=== PATIENT | male | born 1965 | race Two or more races ===

== ENCOUNTER → 2019-06-04 | Day surgery (SDC) | payer OTHER ==
[2019-05-28 15:36] LABS: BASOPHILS % 0.4 % (0.0-1.0); EOSINOPHILS # (AUTO) 0.4 (0.0-0.4); HEMOGLOBIN 15.1 g/dL (14.0-18.0); LYMPHOCYTES # (AUTO) 3.3 (1.0-3.2); LYMPHOCYTES % 43.4 % (18.0-39.1); MEAN CORPUSCULAR HEMOGLOBIN 29.9 pg (28-32); MEAN CORPUSCULAR HGB CONC 35.1 g/dL (31-35); MEAN CORPUSCULAR VOLUME 85.1 fL (81-99); MONOCYTES # (AUTO) 0.6 (0.2-0.8); MONOCYTES % 7.2 % (4.4-11.3); NEUTROPHILS # (AUTO) 3.3 (2.1-6.9); NEUTROPHILS % 43.6 % (38.7-80.0); PLATELET COUNT 225 x10e3/uL (140-360); RED BLOOD COUNT 5.05 x10e6/uL (4.3-5.7); RED CELL DISTRIBUTION WIDTH 13.4 % (11.7-14.4)
[~2019-06-04] MED LIST: ASPIRIN81 MG PO; ATORVASTATIN CA10 MG PO; LIDOCAINE HCL 2% LOCAL INJ 5 ML SDV VIAL INJ ONE; METOPROLOL SUCC50 MG PO; MIDAZOLAM HCL 2 MG/2 ML VIAL ONE; PHENYLEPHRINE HCL 1% 10 MG/ML VIAL ONE; PROPOFOL IV EMULSION 10 MG/ML 50 ML VIAL ONE
--- OUTSIDE RECORDS SUMMARY | 2019-06-04 06:01 | XMS REPORT ---
Author Author [facility] Address Unknown Phone Unavailable Care Team Providers Care Grid Inspector Name Role Phone Unavailable Unavailable Payers Payer Name Policy Type Policy Number Effective Date Expiration Date Problems This patient has no known problems. Allergies, Adverse Reactions, Alerts This patient has no known allergies or adverse reactions. Medications This patient has no known medications. Encounters Start Date/Time End Date/Time Encounter Type Admission Type Attending Clinicians Care Facility Care Department Encounter ID 2019-04-17 10:13:00 2019-04-17 10:13:00 Outpatient [id number]
--- NOTE | 2019-06-04 07:05 | NUR ---
SPIRITUAL CARE - Pre-Surgery Assessment: Pt in bed. Pt's at bedside. Pt reported supportive attention from family and friends. Intervention: I provided pastoral presence, hospitality, and sympathetic listening. I acquainted pt with availability of marketing services manager while hospitalized. Outcome: Pt expressed appreciation for visit. No need for follow up indicated at this time. [facility] Spiritual Care Department O: [phone] Pager: [phone] ([phone] number calling from)
[2019-06-04 09:15] VITALS: BP 121/92
--- NOTE | 2019-06-04 14:57 | Operative Report ---
DATE OF PROCEDURE: SURGEON: Ashwin Lynn MD NAME OF THE PROCEDURE: Colonoscopy. PREPROCEDURE DIAGNOSIS: The patient with history of colon polyps, here for surveillance colonoscopy. DESCRIPTION OF PROCEDURE: After informed written consent, premedications with monitored anesthesia care, standard adult video Olympus colonoscope was introduced into the rectum and all the way into the cecum and terminal ileum. Cecum and terminal ileum appeared to be normal. The ascending colon showed scattered moderate-sized diverticulosis. The prep was suboptimal in some areas, which was able to be washed off and suctioned, but still had some residual stool. There was a diminutive polyp, 2 to 3 mm in size in the area of the hepatic flexure, which was removed by cold biopsy forceps. Retroflexion of the rectum was normal. IMPRESSION: Diverticulosis, colon polyps, inadequate prep in some areas. RECOMMENDATION: Better prep next time. Repeat colonoscopy in 2 to 3 years depending on results of the biopsies. The patient has been advised to follow up in the office to discuss results of the biopsies. Ashwin Lynn MD SR/MODL /[id number]
== END | disposition home or self-care (01) ==
LOC: OR 05:58
PROVIDERS: ATTEND Internal Medicine Gastroenterology
DX: Z09 Encounter for follow-up examination after completed treatment for conditions other than malignant neoplasm (principal); D12.3 Benign neoplasm of transverse colon; K57.30 Diverticulosis of large intestine without perforation or abscess without bleeding; K59.00 Constipation, unspecified; Z71.3 Dietary counseling and surveillance; E66.3 Overweight; I25.10 Atherosclerotic heart disease of native coronary artery without angina pectoris; I25.2 Old myocardial infarction; I10 Essential (primary) hypertension; Z01.810 Encounter for preprocedural cardiovascular examination; Z01.812 Encounter for preprocedural laboratory examination; Z79.82 Long term (current) use of aspirin; Z68.28 Body mass index [BMI] 28.0-28.9, adult; Z95.5 Presence of coronary angioplasty implant and graft; Z87.891 Personal history of nicotine dependence
CPT/HCPCS: 36415; 45380; 85025; 93005; J2001; J2250; J2370; J2704